=== PATIENT | female | born 1965 | race Caucasian/White ===

== ENCOUNTER 2016-05-31 13:19 | Emergency (ER) | payer OTHER ==
[2016-05-31 13:33] VITALS: BP 139/63; PULSE 68; TEMP 98; BMI 31.8
--- NOTE | 2016-05-31 15:17 | PDOC ---
History of Present Illness - General Chief Complaint: Pain Stated Complaint: RT KNEE PAIN Time Seen by Provider: 05/31/16 15:09 History Source: Patient Exam Limitations: No Limitations - History of Present Illness Initial Comments: 05/31/16 15:51 Complaint: Knee pain Patient is a 51-year-old female with no significant medical history other than a fractured right knee in October 2014. It healed and patient has had no problems since then but noticed in the last 1-1/2 weeks the right knee has been bothering her and she has pain and swelling to the leg. Her, shortness of breath , chest pain, history of blood clots, or recent travel. Patient states it's painful to walk. GENERAL/CONSTITUTIONAL: No fever, weakness. dizziness HEAD, EYES, EARS, NOSE AND THROAT: No change in vision. No ear pain or discharge. No sore throat. CARDIOVASCULAR: No chest pain RESPIRATORY: No shortness of breath or cough GASTROINTESTINAL: No pain, nausea, vomiting, diarrhea or constipation GENITOURINARY: No dysuria MUSCULOSKELETAL: No neck or back pain, + right knee SKIN: No rash NEUROLOGIC: No headache, vertigo, loss of consciousness, or loss of sensation. GENERAL: The patient is awake, alert, and fully oriented, in no acute distress. HEAD: Normal with no signs of trauma. EYES: Pupils equal, round and reactive to light, sclera anicteric, conjunctiva clear. ENT: pharynx: no erythema, no exudate, uvula midline NECK: supple CHEST: clear, nontender, rr ABD: soft, nontender EXTREMITIES: Right knee with mild tenderness, no erythema or signs of infection , gross effusion, mild calf tenderness with mild swelling, no discoloration, good range of motion, neurovascular intact. Other extremities, normal range of motion, no edema. NEUROLOGICAL: Normal speech SKIN: Warm, Dry Past History - Past Medical History Allergies/Adverse Reactions: Allergies Allergy/AdvReac Type Severity Reaction Status Date / Time aspirin Allergy Verified 05/31/16 13:34 seafood Allergy Uncoded 05/31/16 13:34 Home Medications: Ambulatory Orders Oxycodone HCl/Acetaminophen [Percocet 5-325 mg Tablet] 1 tab PO Q6H PRN #20 tablet MDD 6 05/31/16 - Surgical History Cholecystectomy: Yes - Psycho/Social/Smoking Cessation Hx Anxiety: No Suicidal Ideation: No Smoking History: Never smoked Have you smoked in the past 12 months: No Information on smoking cessation initiated: No Substance Use Type: None *Physical Exam - Vital Signs Last Vital Signs Temp Pulse Resp BP Pulse Ox 98 F 68 18 139/63 99 05/31/16 13:31 05/31/16 13:31 05/31/16 13:31 05/31/16 13:31 05/31/16 13:31 Procedures - Splinting Splint Location: Right: Knee Pre-Proc Neuro Vasc Exam: normal Pre-Made Type: knee immobilizer Post-Proc Neuro Vasc Exam: normal Medical Decision Making - Medical Decision Making 05/31/16 15:53 Patient with 1-1/2 weeks of leg pain and swelling, had an x-ray prior to evaluation that showed no acute problems. Given swelling and length of symptoms , we'll get an ultrasound here to rule out any cyst or DVT and patient has an appointment, follow-up with orthopedist. 05/31/16 17:38 Ultrasound was negative, patient will be put in a knee immobilizer and given crutches *DC/Admit/Observation/Transfer Diagnosis at time of Disposition: Knee pain, right Qualifiers: Chronicity: acute Qualified Code(s): M25.561 - Pain in right knee - Discharge Dispostion Disposition: HOME Condition at time of disposition: Stable - Prescriptions Prescriptions: Oxycodone HCl/Acetaminophen [Percocet 5-325 mg Tablet] 1 tab PO Q6H PRN #20 tablet MDD 6 PRN Reason: Pain - Referrals Referrals: STAFF,NOT ON [Primary Care Provider] - Keven Norris MD [Staff Physician] - - Patient Instructions Printed Discharge Instructions: DI for Knee Pain, DI for Knee Arthroscopy Additional Instructions: Elevate, wear splint Motrin 600 mg every 6 hours for pain. You can take Percocet one to 2 tablets every 6 hours in addition to the Motrin if it's still painful, especially at night Call the orthopedist tomorrow - Post Discharge Activity Work/School Note: Back to Work
[2016-05-31] MEDS ORDERED: IBUPROFEN 600 MG TABLET (FP) PO ONE ×2 (15:42→15:44)
== END 2016-05-31 17:22 | disposition home or self-care (01) ==
LOC: JERFT 13:19
PROC: 2W3LX1Z Immobilization of Right Lower Extremity using Splint (ICD-10-PCS; principal; 2016-05-31)
DX: M25.561 Pain in right knee (principal)
CPT/HCPCS: 73562-TC-RT; 93971-TC; 99281-25

== ENCOUNTER 2016-08-20 05:59 | Day surgery (SDC) | payer OTHER ==
[2016-08-19 15:36] VITALS: BMI 31.6
[2016-08-20] MEDS: BUPIVACAINE HCL/PF 0.5% (5MG/ML) 10 ML VIAL ONE ×2 (07:42→08:18)
[2016-08-20] MEDS: LIDOCAINE 1%/EPI 1:100000 (50 ML MULTI DOSE VIAL) ONE ×2 (07:43→08:18)
[2016-08-20] MEDS ORDERED: MIDAZOLAM HCL 2 MG/2 ML SINGLE DOSE VIAL ONE (07:49)
[2016-08-20] MEDS ORDERED: PROPOFOL 20 ML ONE (07:49)
[2016-08-20] MEDS ORDERED: LIDOCAINE HCL/PF 2% SDV 5ML VIAL ONE (07:52)
[2016-08-20] MEDS ORDERED: DEXAMETHASONE SOD PHOSPHATE 4 MG/1 ML VIAL ONE (08:14)
--- NOTE | 2016-08-20 08:15 | HP ---
Satellite [facility] - Chief Complaint Chief Complaint: right knee pain - Past Medical History Allergies/Adverse Reactions: Allergies Allergy/AdvReac Type Severity Reaction Status Date / Time aspirin Allergy Verified 08/19/16 15:37 seafood Allergy "RASH,SOB,S Uncoded 08/19/16 15:37 WELLING" ...LMP Comment: 07/14/16 - Current Medications Current Medications: Home Medications Medication Instructions Recorded Ibuprofen [Advil -] 200 mg PO QID 08/20/16 Oxycodone HCl/Acetaminophen 1 - 2 tab PO Q6H #50 tab MDD 8 08/20/16 [Percocet 5-325 mg Tablet -] Satellite Physical Exam - Physical Examination Vital Signs: Vital Signs Period Temp Pulse Resp BP Sys/Pompa Pulse Ox Last 24 Hr 98.0 F-98.0 F 71-71 20-20 134-134/74-74 97 General Appearance: Well Nourished, Well Developed, Alert & Oriented x3 ENT: Clear Lung: Normal air movement Heart: Regular rate & rhythm Extremities: Other (rightk nee- + swelling, + ttp, decr rom, + mcmurrays, + apleys, nvi MRI + mmt) Neurological: Intact, Alert, Oriented Satellite Impression/Plan - Impression/Plan Impression: right knee internal derangement Operative Procedure: right knee arthroscopy Date to be Performed: 08/20/16
[2016-08-20] MEDS ORDERED: KETOROLAC TROMETHAMINE 30 MG/1 ML VIAL ONE (08:26)
[2016-08-20] MEDS ORDERED: ONDANSETRON 4 MG/2 ML VIAL IVPUSH PRN (08:40)
[2016-08-20] MEDS ORDERED: PROMETHAZINE HCL 25 MG/1 ML VIAL IVPUSH PRN (08:40)
[2016-08-20] MEDS ORDERED: LACTATED RINGERS SOLUTION 1,000 ML IV SCH (08:45)
[2016-08-20 10:06] VITALS: TEMP 97.6
--- NOTE | 2016-08-20 10:28 | OP ---
Operative Note - Note: Operative Date: 08/20/16 ([facility]) Pre-Operative Diagnosis: right knee internal derangement Operation: right knee arthroscopy with PMM Post-Operative Diagnosis: Same as Pre-op Surgeon: Keven Norris Anesthesiologist/KRAFT MILL OPERATOR: Tena Taylor MD Anesthesia: General, Local Specimens Removed: shavings Estimated Blood Loss (mls): 5 Operative Report Dictated: Yes
[2016-08-20 12:26] VITALS: BP 131/61; PULSE 60
--- NOTE | 2016-08-20 13:20 | OP ---
DATE OF OPERATION: 08/20/2016 PROCEDURE: Arthroscopy, right knee, with partial medial meniscectomy. PREOPERATIVE DIAGNOSIS: Internal derangement, right knee. POSTOPERATIVE DIAGNOSIS: Internal derangement, right knee. SURGICAL ATTENDING: Keven Norris MD ANESTHESIA: General with LMA. CLOSURE: 4-0 nylon COMPLICATIONS: None. CONDITION: To recovery room in stable condition. ESTIMATED BLOOD LOSS: Negligible. DESCRIPTION OF OPERATIVE PROCEDURE. The patient was taken to the operating room on August 20, 2016. General anesthesia was administered by the anesthesiologist. The right lower extremity was prepped and draped in the usual sterile fashion. The superolateral, mediolateral and infrapatellar portal sites were infiltrated with 1% Xylocaine with epinephrine. The superolateral portal was made with a 15 blade followed by a blunt trocar. The knee was aspirated and inflated with a cocktail of 10 mL of 1% Xylocaine, 10 mL of 0.5% Marcaine and 20 mL of arthroscopic saline. The medial and lateral infrapatellar portals were then made with a 15 blade followed by the blunt trocar. The scope was placed in the lateral suprapatellar portal and up into the suprapatellar pouch. The pouch was visualized to be clean. The medial and lateral gutters were visualized to be clean. The undersurface of the patella and the trochlea was visualized to be intact. With valgus stress on the knee, the medial compartment was entered. The posterior horn of the medial meniscus was visualized and found to be intact. There was a flap tear anteriorly that was debrided back to smooth, stable meniscal tissues using a meniscal biter and an arthroscopic shaver. The knee was flexed up to 90 degrees. The ACL and PCL were visualized and found to be intact. The medial femoral condyle was also run and found to be intact, as was the medial tibial plateau. In the figure-of-4 position, the lateral compartment of the knee was entered. The lateral meniscus was visualized, probed and found to be intact. The lateral femoral condyle was run and found to be intact, as was the lateral tibial plateau. The knee was irrigated with copious amounts of irrigation. The portals were closed with 4-0 nylon. Prior to closure, 20 mL of 0.5% Marcaine were infused into the knee for postoperative analgesia. A sterile pressure dressing was placed over the knee. Patient was awakened from anesthesia and transferred to recovery in stable condition. No complications. Estimated blood loss was negligible. Foreign [id number]
--- NOTE | 2016-08-23 09:20 | PATH ---
Surgical Pathology Report Patient Name: HOLGER WHITE [facility]. Rec. #: [id number] /Age/Gender: 1965 (Age: 51) / F Account: [id number] Location: [facility] SURGICAL Taken: 08/20/2016 Received: 08/20/2016 Reported: 08/23/2016 Physicians: Keven Norris M.D. Specimen(s) Received SHAVINGS RIGHT KNEE Clinical History Medial meniscus tear right knee Final Diagnosis KNEE, RIGHT, ARTHROSCOPIC SHAVING: FIBROCARTILAGE WITH MYXOID DEGENERATIVE CHANGES, ALONG WITH PORTIONS OF SYNOVIUM AND HYALINE CARTILAGE. Electronically Signed Carrington Morgan M.D. Gross Description Received in formalin, labeled "right knee shavings," is a 3.5 x 2.5 x 0.3 cm. aggregate of santacruz-yellow soft tissue fragments. A merchandiser retail representative portion is submitted in one cassette. /08/20/201608/20/2016
== END 2016-08-20 11:15 | disposition home or self-care (01) ==
LOC: JASU-SURG 05:59
PROVIDERS: ATTEND Orthopaedic Surgery
PROC: 0SBC4ZZ Excision of Right Knee Joint, Percutaneous Endoscopic Approach (ICD-10-PCS; principal; 2016-08-20 08:00)
DX: S83.241A Other tear of medial meniscus, current injury, right knee, initial encounter (principal); X58.XXXA Exposure to other specified factors, initial encounter; Y93.9 Activity, unspecified; Y92.9 Unspecified place or not applicable
CPT/HCPCS: 84703; 88304-TC; 94760